=== PATIENT | male | born 1995 | race Caucasian/White ===

== ENCOUNTER 2023-09-28 19:09 | Emergency (ER) | payer OTHER, SELFPAY ==
[2023-09-28 19:15] VITALS: BP 116/73
[2023-09-28 19:28] VITALS: BP 131/59
[2023-09-28 20:00] VITALS: BP 114/73
--- NOTE | 2023-09-28 20:01 | ED.GENMED ---
History of Present Illness
General
Chief Complaint: Chest Pain
Source: patient
Exam Limitations: none
Time Seen by Provider: 09/28/23 19:30
Travel History
Have you had any contact with someone who has COVID-19?: No
Do you have any symptoms of coronavirus? Fever > 100 degrees, chills, cough, shortness of breath, sore throat, loss of taste or smell, muscle aches, or headache?: No
History of Present Illness
History of Present Illness:
This is a 28 year old male that comes in with c/o chest pain. Stats that this has been happening for the past 6 months. States that he feels like a thumping occasionally with pain. Patient was seen by the PCP and thought it was anxiety and he was
given Klonopin. States that he took one before coming and he does feel a little better. States that it gets worse when he drinks and he was drinking last night. States that he does have a headache but he felt this was more from a hangover. States
that he is occasionally SOB. States that he did vomit. Denies any fever, chills, abd pain, nausea, diarrhea, dizziness, urinary burning.
Past History
Past History
ED Past Medical History: None; Negative Asthma, HTN, Hypercholesterolemia or NIDDM
ED Past Surgical History: None
Social History
Tobacco: Vaping
Alcohol: Occasional
Personal: Single
Living: with family
Review of Systems
Review of Systems
All Other Systems: ROS reviewed and negative except as documented in HPI and ROS
Constitutional: Reports no symptoms; Denies fever or chills
EENT: Reports no symptoms
Respiratory: Reports trouble breathing (occasional); Denies cough
Cardiac: Reports chest pain
ABD/GI: Reports vomiting; Denies abdominal pain, nausea or diarrhea
: Reports no symptoms; Denies dysuria, frequency or urgency
Musculoskeletal: Reports no symptoms
Skin: Reports no symptoms
Neurological: Reports headache; Denies dizzy
Psychiatric: Reports no symptoms
Phy Exam
General Physical Exam
General Presentation: well appearing and no apparent distress
General age: appears stated age
General Skin: warm and dry
General Habitus: normal
General Mental: alert
General Hydration: dry mucous membranes
ENT Exam
ENT Exam: TM's normal, pharynx normal and neck supple
Eye Exam
Eye Exam: EOMI
Cardiovascular Exam
Cardiovascular Exam: regular rate/rhythm, no edema, no murmur and normal peripheral pulses
Pulmonary Exam
Pulmonary Exam: lungs clear, no respiratory distress, no rales, chest non tender, no crackles, no rhonchi, no wheezing and no cough
Gastrointestinal Exam
Gastrointestinal Exam: normal bowel sounds, non tender, soft, no organomegaly, no pulsatile mass and non distended
Musculoskeletal Exam
Musculoskeletal Exam: full ROM and no edema
Skin Exam
Skin Exam: normal color, warm/dry, no rash and no petechia
Psychiatric Exam
Psychiatric Exam: normal mood/affect
Scores
Heart Score for Chest Pain Patients
STEMI patient?: No
History: Slightly or Non-Suspicious
ECG: Normal
Age: </= 45 years
Risk Factors: No Risk Factors
Troponin: </= Normal Limit
Heart Score for Chest Pain Patients: 0
Heart Score Risk: 2.5% MACE over next 6 weeks
Course
Orders/Labs/Results
Orders:
Orders
09/28/23 19:17
ECG [Electrocardiogram (*1)] Urgent
Reason for Study: Chest Pain
EKG- Treatment ONCE
09/28/23 20:00
0.9% Sodium Chloride 1000 ml [Nss] 1,000 ml IV BOLUS
Mag Hydrox/Al Hydrox/Simeth [Maalox] 30 ml PO NOW STA
Pantoprazole [Protonix IV] 40 mg IV NOW STA
CR Chest - 2 Views Urgent
Comment:
Reason For Exam: Chest pain
09/28/23 20:04
Ondansetron Injectable [Zofran] 4 mg IV NOW STA
09/28/23 20:37
Complete Blood Count/With Diff Urgent
Comprehensive Metabolic Panel Urgent
Troponin I Urgent
Abnormal Lab Results
09/28/23
20:37
Glucose 101 H mg/dl
(70-99)
Albumin 5.1 H g/dl
(3.5-5.0)
09/28/23 20:37
09/28/23 20:37
Glucose nonfasting. Troponin <0.012
Vital Signs
Initial and Last Documented VS:
Initial Vital Signs
Temp Pulse Resp BP Pulse Ox
98.2 F 80 20 116/73 99
09/28/23 19:15 09/28/23 19:15 09/28/23 19:15 09/28/23 19:15 09/28/23 19:15
Last Documented Vital Signs
Temp Pulse Resp BP Pulse Ox
98.2 F 80 20 116/73 99
09/28/23 19:15 09/28/23 19:15 09/28/23 19:15 09/28/23 19:15 09/28/23 19:15
MDM/Problems Addressed
Differential Diagnosis Includes:
Anxiety, GERD,
MDM/Problems Addressed:
This is a 28 year old male that comes in with c/o chest pain. States that this has been going on for the past 6 months and that he occasionally feels a Thumping. States that the pain gets worse when he is drinking.
Will check labs, chest X-ray, Protonix and Maalox.
Back into see patient. States that he is feelig better. Explained that this may be due to reflux of a gastritis due to his alcohol use last night. Encouraged patient to cut down on the alchol use and watch his Caffeine intake. Will have patient
follow up with the Family doctor and a Ventilator Specialist for further evaluation. Patient to return with any concerns.
Chronic conditions affecting care:
NA
Acute Exacerbation and/or Progression of Chronic Illness:
NA
*Pulse Oximetry
Patient hypoxic: no
*EKG
Interpreted by ED Provider?: Yes
Heart Rate: 74
Rate: normal
Rhythm: sinus
[place]: normal axis
Interval: normal interval
QRS Pattern: normal QRS
Ischemia: no ischemia (Checked by Dr. Hwang)
*Sound Engineer Interpretation
Rate: normal
Heart Rate: 73
Rhythm: sinus
*Critical Care Note
Total Time (30-74mins, 75-104mins- exclusive of procedures): Not Applicable
ED Attending Note
-
Portions of this chart may have been created with voice recognition software.� Occasional wrong word or��sound alike� substitutions may have occurred due to the inherent limitations of voice recognition software.
Discharge Plan
Departure
Patient Disposition: Home (Routine Discharge)
Date of Disposition: 09/28/23
Time of Disposition: 21:43
Patient with high blood pressure during this ER visit?: No
Condition: Good
Covid-19: Not Applicable
Discharge Problem:
Gastroesophageal reflux disease
Instructions: Acid Reflux and GERD in Adults (DC)
Referrals:
Georges Miramontes MD [Active] - Call in 1-3 days for appt
Activity Restrictions/Additional Instructions:
As discussed, your blood work is normal along with your ECG. This may be due to reflux. Please try and decrease your alcohol and caffeine use as this will make any reflux or Gastritis worse. Follow up with the family doctor for recheck. You may also
follow up with the Ventilator Specialist for further evaluation. IF YOU HAVE INCREASED OR CHANGING PAIN, OR YOU HAVE ANY OTHER CONCERNS PLEASE RETURN TO THE EMERGENCY ROOM.
Interventions
Interventions:
*Risk Screen - Suicide Last Done: 09/28/23 19:15
*General Assessment Last Done: 09/28/23 19:15
*Neglect/Abuse Screening Last Done: 09/28/23 19:15
ED- Fall Risk Assessment Last Done: 09/28/23 19:44
ED- Cardiac Assessment Last Done: 09/28/23 19:44
[2023-09-28] MEDS: NSS 1000 IV (20:39)
[2023-09-28] MEDS: ZOFRAN 4 MG IV (20:39)
[2023-09-28] MEDS: PROTONIX IV 40 MG IV (20:41)
[2023-09-28 20:48] LABS: % Basophils 0.5 % (0-2); % Immature Granulocytes 0.1 % (0-0.5); % Lymphocytes 41.4 % (20.5-51.1); % Monocytes 6.9 % (1.7-9.3); % Neutrophils 50.1 % (42.2-75.2); Absolute Eosinophils 0.1 10^3/uL (0-0.7); Absolute Lymphocytes 3.3 10^3/uL (1.2-3.4); Absolute Monocytes 0.6 10^3/uL (0.1-0.6); Hematocrit 42.1 % (39.0-52.0); Hemoglobin 15.1 g/dL (13.0-18.0); Mean Corp Hgb Conc. 35.9 g/dL (33.0-37.0); Mean Corpuscular Volume 83.5 fL (80.0-94.0); Mean Platelet Volume 8.6 fL (7.4-10.4); Nucleated Red Blood Cells % 0 % (-); Platelet Count 237 10^3/uL (130-400); Red Blood Cell Count 5.04 10^6/uL (4.70-6.10); Red Cell Dist. Width 12.7 % (11.5-14.5)
[2023-09-28] MEDS: MAALOX 30 ML PO (20:48)
[2023-09-28 21:00] VITALS: BP 117/68
[2023-09-28 21:02] LABS: ALT (SGPT) 29 U/L (0-50); AST (SGOT) 25 U/L (17-59); Albumin 5.1 g/dl (3.5-5.0); Alkaline Phosphatase 53 U/L (38-126); Blood Urea Nitrogen 12 mg/dl (9-20); Calcium 10.1 mg/dl (8.4-10.2); Carbon Dioxide 29 mmol/L (22-30); Chloride 102 mmol/L (98-107); Glucose 101 mg/dl (70-99); Potassium 4.3 mmol/L (3.5-5.1); Sodium 136 mmol/L (135-145); Total Bilirubin 0.9 mg/dl (0.2-1.3); Total Protein 7.5 g/dl (6.3-8.2); eGFR > 60.00
[2023-09-28 21:12] LABS: Troponin I < 0.012 ng/ml
[2023-09-28 22:00] VITALS: BP 106/61
== END 2023-09-28 22:05 | disposition home or self-care (01) ==
LOC: EMR 19:09
PROVIDERS: Clinical Nurse Specialist Family Health; EMERGENCY PHYSICIAN Emergency Medicine; FAMILY PHYSICIAN General Practice
DX: K21.9 Gastro-esophageal reflux disease without esophagitis (principal); F41.9 Anxiety disorder, unspecified; F17.290 Nicotine dependence, other tobacco product, uncomplicated
CPT/HCPCS: 99283; 96374; 96375; 96361; 80053; 84484; 85025; 93005